=== PATIENT | male | born 1980 | race Caucasian/White ===

== ENCOUNTER 2023-07-11 06:37 | Day surgery (SDC) | payer BC ==
[2023-07-05 15:32] LABS: Absolute Eosinophils 0.2 K/uL (0-0.5); Absolute Lymphocytes (CBC) 2.7 K/uL (0.7-4.9); Absolute Monocytes 0.6 K/uL (0.1-1.3); Basophils % 0.6 % (0-1.3); Eosinophils % 2.5 % (0-4.4); Hematocrit 43.4 % (39.6-49.0); Hemoglobin 14.5 g/dL (13.6-17.9); Lymphocytes % 31.4 % (15.3-44.8); MCH 30.7 pg (27.0-35.0); MCHC 33.4 g/dL (32.0-36.0); MPV 8.8 fL (7.6-11.3); Monocytes % 7.2 % (3.3-12.3); Neutrophils % 58.3 % (41.7-73.7); Platelets 233 thou/uL (152-406); RBC Red Blood Cell Count 4.72 M/uL (4.33-5.43); Red Cell Distribution Width 13.4 % (12.1-15.2)
[2023-07-05 15:47] LABS: Anion Gap 8.9 mEq/L (5.0-15.0); Potassium 3.9 mEq/L (3.5-5.1)
--- NOTE | 2023-07-05 21:13 | RAD REPORT ---
EXAM DESCRIPTION: RAD - Chest Pa And Lat (2 Views) - 07/05/2023 3:31 pm CLINICAL HISTORY: pre op for surgery. Hypertension COMPARISON: No comparisons TECHNIQUE: PA and lateral views of the chest were obtained. FINDINGS: The lungs are clear. Heart size is normal and central vasculature is within normal limits. No pleural effusion or pneumothorax seen. No acute bony finding noted. IMPRESSION: No acute cardiopulmonary process.
--- NOTE | 2023-07-09 13:30 | EKG ---
Test Date: 2023-07-05 Test Time: 15:14:13 Director Of Collections And Archives: SAJAN MEASUREMENT RESULTS: Intervals: Rate: 82 [place]: 160 QRSD: 88 QT: 350 QTc: 408 [place]: P: 45 [place]: 160 QRS: -11 T: 20 INTERPRETIVE STATEMENTS: Normal sinus rhythm Possible Left atrial enlargement Left ventricular hypertrophy Abnormal ECG No previous ECG available for comparison Electronically Signed On 07-09-23 13:20:06 CDT by Rudi Mcclellan
[2023-07-11] MEDS: Ringers Lactate 1,000 ML IV ONE (07:00)
[2023-07-11] MEDS ORDERED: ONDANSETRON 4 MG/2 ML VIAL ONE (07:47)
[2023-07-11] MEDS ORDERED: LIDOCAINE 2% MPF 5 ML VIAL ONE (07:47)
[2023-07-11] MEDS ORDERED: dexAMETHasone 10 MG/ML VIAL ONE (07:47)
[2023-07-11] MEDS ORDERED: KETOROLAC 30 MG/ML INJ ONE (07:47)
[2023-07-11] MEDS ORDERED: propofoL 200 MG/20 ML VIAL IV ONE (07:48)
[2023-07-11] MEDS ORDERED: FENTANYL CITR 100 MCG/2 ML ONE (07:48)
[2023-07-11] MEDS ORDERED: MIDAZOLAM HCL 2 MG/2 ML INJ ONE (07:48)
[2023-07-11] MEDS ORDERED: ROCURONIUM 50 MG/5 ML VIAL IV ONE ×2 (07:50→08:46)
[2023-07-11] MEDS: CEFAZOLIN SODIUM 1 GM/VIAL ONE (07:51)
[2023-07-11] MEDS ORDERED: Phenylephrine HCl 10 MG/ML 1 ML VIAL ONE (08:46)
[2023-07-11] MEDS ORDERED: NS 0.9% VIAL 10 ML ONE (08:46)
--- NOTE | 2023-07-11 09:22 | P.BOP ---
Preoperative diagnosis: incarcerated umbilical hernia Postoperative diagnosis: same Primary procedure: Laparoscopic repair of incarcerated umbilical hernia with mesh Estimated blood loss: <10cc Specimen: sac Findings: as above incarc omentum Anesthesia: General Complications: None Implants: medium ventralex Transferred to: Recovery Room Condition: Good
[2023-07-11 09:31] VITALS: O2SAT 100
[2023-07-11 11:12] VITALS: BP 124/81; TEMP 97
--- NOTE | 2023-07-11 20:12 | OP ---
Date of Procedure: 07/11/2023 Surgeon: Wallace Gilliam MD Preoperative Diagnosis: Incarcerated tender umbilical hernia. Postoperative Diagnosis: Incarcerated tender umbilical hernia. Procedure: Laparoscopic repair of tender incarcerated umbilical hernia with mesh. Estimated Blood Loss: Less than 10 cc. Anesthesia: General plus local. Finding: Incarcerated omentum. Specimen: Hernia sac. Implants: Medium Ventralex mesh. Indications: This is the case of a male, who came to us with a tender incarcerated ventral hernia, u mbilical. The benefits, alternatives, and risks of a laparoscopic, possible open repair with possibl e mesh fully explained, which include, but not limited to, infection, bleeding, damage to adjacent st ructures, anesthesia complication, recurrence, LA, and even . He also understands this may not relieve any symptoms. He might need more than one surgical intervention. The pros and cons of mesh placement discussed with the patient. All the questions were answered to his satisfaction. He nedra d a consent. Description Of Procedure: The patient was brought to the operating room, placed in supine position. Anesthesia was done without complication. Abdominal area was prepped and draped in sterile fashion. Marcaine 0.5% was injected for local anesthetic, followed by sharp incision of the skin in the supr aumbilical region. Incision was carried down until we found the hernia sac. We noticed the incarcer ated omentum. Adhesions of the omentum to the hernia sac were removed and omentum was inspected, see med viable, so it was carefully reduced, after making sure there was no bleeding. Hernia sac was rem dimitry. At that moment, we noticed the fascial edges to be friable, so bringing it together may increa se the chance of recurrence, so we decided to use a mesh in that region, so a Vicryl #1 placed on the fascia multiple times and a Leonila trocar was carefully placed, obtained pneumoperitoneum. We place d 5 mm trocars in the right and left side of the abdomen. This allowed me to visualize the center. We selected a medium mesh. It is that mesh that will overlap the area about 3 to 5 cm. We put the m esh through the Leonila trocar. Leonila trocar was removed. We approximated fascial edges with #1 Shiv ryl. This allowed me to have a pneumoperitoneum in place. The mesh was secured in place with SorbaF ix. Mesh straps were removed. Then, we continued circumferentially putting the SorbaFix to diminish the chance of any intestines coming in between. Once the mesh lies nice and flat against the anteri or abdominal wall, we inspected the area of the omentum that we reduced, looks intact with no bleedin g. At that moment, I proceeded to deflating pneumoperitoneum. I removed the trocars under direct vi sualization. The fascia was closed with #1 Vicryl and then the skin closed and the subcutaneous tiss ue with 3-0 chromic and a subcuticular 3-0 chromic. Steri-Strips placed over the area. Sponge count s and instrument counts were correct. Patient tolerated the procedure well. Patient sent to recover y in stable condition. NISHANT/TIFFANY Voice ID: [id number] Report ID: [id number]
--- NOTE | 2023-07-11 20:15 | DS ---
Date of Discharge: 07/11/2023 Diagnosis: Incarcerated tender umbilical hernia. Procedure: Laparoscopic repair of tender incarcerated umbilical hernia with mesh. Disposition: Home. Condition: Stable. Activity: As tolerated. No heavy lifting. Plan: Follow up in my office in 1 week. Call for appointment at [phone]. Keep area dry for 48 hours, then may shower. Keep Steri-Strips intact and abdominal binder while he is out of bed. NISHANT/TIFFANY Voice ID: [id number] Report ID: [id number]
== END 2023-07-11 11:00 | disposition home or self-care (01) ==
LOC: OR 06:37
PROVIDERS: ATTEND Surgery
PROC: 0WUF4JZ Supplement Abdominal Wall with Synthetic Substitute, Percutaneous Endoscopic Approach (ICD-10-PCS; principal; 2023-07-11 08:10)
DX: K42.0 Umbilical hernia with obstruction, without gangrene (principal)
CPT/HCPCS: 36415; 71046; 80048; 85025; 88302; 93005; A4216; J0690; J1100; J2001; J2250; J2371; J2405; J2704; J3010; J7120